=== PATIENT | male | born 1960 | race American Indian/Alaskan Native ===

== ENCOUNTER 2017-07-06 08:16 | Day surgery (SDC) | payer MEDICARE ==
[2017-07-06] MEDS ORDERED: NACL 0.9% 1000 ML 1,000 ML IV SCH (09:00)
--- NOTE | 2017-07-06 09:16 | Anesthesia Day of Surgery ---
Anesthesia Day of Surgery - Day of Surgery Patient Examined: Yes Patient H&P Reviewed: Yes Patient is NPO: Yes Beta Blockers: No Cardiac Clearance: No Pulmonary Clearance: No
[2017-07-06] MEDS ORDERED: DIPRIVAN 10 MG/ML IV ONE ×2 (09:18→09:19)
--- NOTE | 2017-07-06 09:18 | Anesthesia Consultation ---
Anesthesia Consult and Med Hx - Airway Anesthetic Teeth Evaluation: Good ROM Head & Neck: Adequate Mental/Hyoid Distance: Adequate Mallampati Class: Class III Intubation Access Assessment: Probably Good - Pulmonary Exam CTA: Yes - Cardiac Exam Cardiac Exam: No Murmur - Pre-Operative Health Status ASA Pre-Surgery Classification: ASA3 Proposed Anesthetic Plan: MAC - Pulmonary Hx Smoking: Yes (PAST SMOKER-STOPPED X 1 YR-1/2PPD X 25YRS) Hx Asthma: No COPD: No Hx Pneumonia: No Hx Sleep Apnea: Yes - Cardiovascular System Hx Hypertension: Yes Hx Coronary Artery Disease: No Hx Heart Attack/AMI: No Hx Angina: No (>4METS) - Central Nervous System Hx Seizures: No CVA: No Hx Back Pain: Yes (CHRONIC BACK AND NECK PAIN) Hx Psychiatric Problems: No - Gastrointestinal Hx Gastroesophageal Reflux Disease: No - Endocrine Hx Renal Disease: Yes Hx Liver Disease: Yes Hx Insulin Dependent Diabetes: Yes Hx Thyroid Disease: No - Hematic Hx Anemia: Yes Hx Sickle Cell Disease: No - Other Systems Hx Cancer: No Hx Obesity: Yes (not M.O.)
[2017-07-06] MEDS ORDERED: XYLOCAINE 2% INFILTRATI ONE (09:19)
[2017-07-06] MEDS ORDERED: WATER FOR IRRIG STERILE ONE (09:20)
--- NOTE | 2017-07-06 09:54 | Short Stay Summary ---
Short Stay Documentation Date of service: 07/06/17 Narrative H&P: The patient presents for colonoscopy to evaluate iron deficiency anemia. - History Past Medical History: diabetes, hypertension, other (chronic pain) Past Surgical History: No surgical history Social history: no smoking, no alcohol abuse - Allergies and Medications Current Medications: Allergies meperidine HCl [From Demerol] Allergy (Verified 08/21/14 11:11) Shortness of Breath Home Medications Medication Instructions Recorded Confirmed Last Taken Type Atorvastatin 20 mg PO DAILY 08/21/14 09/28/14 09/27/14 History Methadone HCl 10 mg PO 6XD 08/21/14 09/28/14 09/27/14 History NovoLIN 70-30 100 Unit/ml Vial 40 units SC AMHY 08/21/14 09/28/14 09/27/14 History Hctz 12.5 mg PO DAILY 09/25/14 09/28/14 09/27/14 History Lotrel 10-20 mg 1 tab PO DAILY 09/25/14 09/28/14 09/27/14 History oxyCODONE 15 mg PO 4XD 09/25/14 09/28/14 09/27/14 History Amlodipine Besylate/Benazepril 07/01/17 Unknown History [Amlodipine-Benazepril 10-20 mg] Active Medications Sodium Chloride (Nacl 0.9% 1000 Ml) 1,000 mls @ 50 mls/hr IV DIRECT HOLLEY - Physical exam General appearance: no acute distress, well-nourished Integumentary: no rash, no growths, no abnormal pigmentation HEENT: Atraumatic, PERRLA, EOMI, Mucous membr. moist/pink Lungs: Clear to auscultation, Normal air movement Breasts: deferred Heart: Regular rate, Normal S1, Normal S2, No murmurs Gastrointestinal: normoactive bowel sounds, no tenderness, no distended, no masses, no hepatomegaly, no splenomegaly Male Genitourinary: deferred Rectal Exam: normal exam-external/orifice, normal rectal tone, no mass Extremities: no ischemia, pulses intact, pulses symmetrical, No edema, normal temperature, normal color, Full ROM Neurological: Normal gait, Normal speech, Strength at 5/5 X4 ext, Normal tone, Sensation intact, Cranial nerves 3-12 NL - Brief post op/procedure progress note Date of procedure: 07/06/17 Findings: see dictated report. Estimated blood loss: none Pathology: none Condition: stable - Disposition Condition at discharge: Good Disposition: DC-01 TO HOME OR SELFCARE - Discharge Diagnoses (1) Iron deficiency anemia due to chronic blood loss Status: Acute Short Stay Discharge Plan Activity: other (no driving for 24 hours) Weight Bearing Status: Weight Bear as Tolerated Diet: diabetic Follow up with: MARIE BARTHOLOMEW MD [Primary Care Provider] - 7 Days
--- NOTE | 2017-07-06 09:58 | Operative Report ---
Operative Report Operative Report: Date of procedure: 07/06/2017 Preprocedure diagnosis: Iron deficiency anemia Post procedure diagnosis: Few left colon diverticula, otherwise normal Procedure: Colonoscopy to the cecum Endoscopist: Dr. Torres Anesthesia: Monitored anesthesia care per anesthesia department Estimated blood loss: 0 Medications: Monitored anesthesia care. See separate report by anesthesia for details. After careful discussion of the nature and purpose of the procedure as well as details of the technique risks benefits and alternatives the patient gave consent. Please see recent history and physical from the office. The patient was placed in the left lateral decubitus position and medicated per anesthesia. A rectal exam was performed sphincter tone was normal there were no masses palpable. The [employer] 570 scope was passed transanally and advanced under continuous direct vision without difficulty to the cecum. The colon was well prepared. The cecum was normal. The ascending colon was normal and on forward and retroflexed views. The transverse colon and descending colon were normal. There were a few scattered diverticula in the sigmoid colon. The rectum was normal on forward and retroflexed views. The procedure was well-tolerated overall and the patient was observed in recovery. Conclusions: Few sigmoid diverticula, otherwise normal colonoscopy to the cecum. Plan: Continue iron therapy in light of previous negative workup. Office follow -up in 3 months. Consider repeating upper endoscopy or hematology referral if the patient's blood count is not clearly stable. Signed electronically: Roel Torres M.D.
[2017-07-06 10:37] VITALS: BP 126/59
--- NOTE | 2017-07-06 14:16 | Post Anesthesia Evaluation ---
- Post Anesthesia Evaluation Patient Participated: Yes Airway Patent: Yes Stable Respiratory Function: Yes Nausea/Vomiting: No Temp > 96.8F: Yes Pain Manageable: Yes Adequeate Hydration: Yes Anesthesia Complications: No
== END 2017-07-06 08:17 | disposition home or self-care (01) ==
LOC: GIO 08:16
PROVIDERS: ATTEND Internal Medicine Gastroenterology
DX: D50.9 Iron deficiency anemia, unspecified (principal); K57.30 Diverticulosis of large intestine without perforation or abscess without bleeding; G47.30 Sleep apnea, unspecified; I10 Essential (primary) hypertension; E11.9 Type 2 diabetes mellitus without complications; E66.9 Obesity, unspecified; Z87.891 Personal history of nicotine dependence; Z79.899 Other long term (current) drug therapy
CPT/HCPCS: 45378; 82962; J2704; J7030

== ENCOUNTER 2017-07-21 09:14 | Day surgery (SDC) | payer MEDICARE ==
--- NOTE | 2017-07-21 10:26 | Anesthesia Consultation ---
Anesthesia Consult and Med Hx Date of service: 07/21/17 - Airway Anesthetic Teeth Evaluation: Good ROM Head & Neck: Adequate Mental/Hyoid Distance: Adequate Mallampati Class: Class II Intubation Access Assessment: Probably Good - Pulmonary Exam CTA: Yes - Cardiac Exam Cardiac Exam: RRR - Pre-Operative Health Status ASA Pre-Surgery Classification: ASA3 Proposed Anesthetic Plan: MAC - Pulmonary Hx Smoking: Yes (former ) Hx Sleep Apnea: Yes (cpap) - Cardiovascular System Hx Hypertension: Yes - Central Nervous System Hx Back Pain: Yes - Endocrine Hx Non-Insulin Dependent Diabetes: Yes - Hematic Hx Anemia: Yes
--- NOTE | 2017-07-21 10:27 | Anesthesia Day of Surgery ---
Anesthesia Day of Surgery - Day of Surgery Patient Examined: Yes Patient H&P Reviewed: Yes Patient is NPO: Yes
[2017-07-21] MEDS ORDERED: D50W (25GM) Syringe IV ONE (10:35)
[2017-07-21] MEDS ORDERED: WATER FOR IRRIG STERILE IR ONE (10:54)
[2017-07-21] MEDS ORDERED: DIPRIVAN 10 MG/ML IV ONE (10:56)
[2017-07-21] MEDS ORDERED: NACL 0.9% 1000 ML 1,000 ML IV SCH (11:00)
--- NOTE | 2017-07-21 11:22 | Short Stay Summary ---
Short Stay Documentation Date of service: 07/21/17 Narrative H&P: The patient presents for EGD to evaluate unexplained iron deficiency anemia. Recent colonoscopy revealed diverticulosis. - History Past Medical History: diabetes, hypertension Past Surgical History: No surgical history Social history: no significant social history, , lives with family, no smoking, no alcohol abuse, no prescription drug abuse - Allergies and Medications Current Medications: Allergies meperidine HCl [From Demerol] Allergy (Verified 08/21/14 11:11) Shortness of Breath Home Medications Medication Instructions Recorded Confirmed Last Taken Type Atorvastatin 20 mg PO DAILY 08/21/14 09/28/14 09/27/14 History Methadone HCl 10 mg PO 6XD 08/21/14 09/28/14 09/27/14 History NovoLIN 70-30 100 Unit/ml Vial 40 units SC AMHY 08/21/14 09/28/14 09/27/14 History Hctz 12.5 mg PO DAILY 09/25/14 09/28/14 09/27/14 History Lotrel 10-20 mg 1 tab PO DAILY 09/25/14 09/28/14 09/27/14 History oxyCODONE 15 mg PO 4XD 09/25/14 09/28/14 09/27/14 History Amlodipine Besylate/Benazepril 07/01/17 Unknown History [Amlodipine-Benazepril 10-20 mg] Active Medications Sodium Chloride (Nacl 0.9% 1000 Ml) 1,000 mls @ 50 mls/hr IV DIRECT HOLLEY Last Admin: 07/21/17 10:45 Dose: 50 mls/hr - Physical exam General appearance: no acute distress, well-nourished Integumentary: no rash, no growths, no abnormal pigmentation HEENT: Atraumatic, PERRLA, EOMI, Mucous membr. moist/pink Lungs: Clear to auscultation, Normal air movement Breasts: deferred Heart: Regular rate, Normal S1, Normal S2, No murmurs Gastrointestinal: normoactive bowel sounds, no tenderness, no distended, no masses, no organomegaly Male Genitourinary: deferred Rectal Exam: deferred Extremities: no ischemia, pulses intact, pulses symmetrical, No edema, normal temperature, normal color, Full ROM Neurological: Normal gait, Normal speech, Strength at 5/5 X4 ext, Normal tone, Sensation intact, Cranial nerves 3-12 NL - Brief post op/procedure progress note Date of procedure: 07/21/17 Findings: report dictated. Estimated blood loss: none Pathology: list (antral biopsies for h.pylori) Specimen disposition: to lab Condition: stable - Disposition Condition at discharge: Good Disposition: DC-01 TO HOME OR SELFCARE - Discharge Diagnoses (1) Iron deficiency anemia due to chronic blood loss Status: Acute Short Stay Discharge Plan Activity: other (no driving for 24 hours) Weight Bearing Status: Weight Bear as Tolerated Diet: regular Additional Instructions: Post Sedation D/C Instructions When you return home you may resume your regular diet unless otherwise directed. -Go directly home from the hospital and rest quietly. You may resume normal activities tomorrow. -Do NOT drive, return to work, operate any machinery or make any important personal or business decisions today. -Do NOT drink any alcohol or take nerve or sleeping drugs. They add to the effects of the medicine still present in your body. Follow up with: MARIE BARTHOLOMEW MD [Primary Care Provider] - 7 Days
--- NOTE | 2017-07-21 11:24 | Operative Report ---
Operative Report Operative Report: Date of procedure: 07/21/2017 Procedure: Esophagogastroduodenoscopy with antral biopsies for H. pylori Preprocedure diagnosis: Unexplained iron deficiency anemia Post procedure diagnosis: Minimal prepyloric and antral gastritis Endoscopist: Dr. Torres Anesthesia: Monitored anesthesia care per anesthesia department Medications: Propofol per anesthesia Estimated blood loss: 0 After careful discussion of the nature and purpose of the procedure as well as details the technique risks benefits and alternatives consent was obtained. The patient was placed in the left lateral decubitus position and medicated per anesthesia. The tip of the [employer] 570 video scope was passed per orum under direct vision into the esophagus and advanced into the stomach and descending duodenum. The descending duodenum the duodenal bulb and pylorus were symmetrical and normal. The scope was withdrawn into the stomach and the stomach then gently insufflated with air. The antrum revealed a few punctate erosions in the mid antrum and prepyloric region. 3 biopsies were taken in the prepyloric area for H. pylori testing. The stomach was further insufflated and the scope was then retroflexed and partially withdrawn. The cardia, fundus, and body of the stomach were within normal limits and easily distensible.The scope was then withdrawn in the forward position. The esophagogastric junction was at 40 cm. The esophageal body was normal throughout. The procedure was was well tolerated and the patient was observed in recovery. Impressions: Mild prepyloric antral gastritis. No findings overall to explain iron deficiency status. Plan: Iron therapy. Office follow-up in 6 weeks. Continued iron therapy. Consider repeating pill camera study depending upon his labs. Electronically signed: Roel Torres MD
[2017-07-21 11:33] VITALS: BP 105/68
== END 2017-07-21 09:15 | disposition home or self-care (01) ==
LOC: GIO 09:14
PROVIDERS: ATTEND Internal Medicine Gastroenterology
DX: D50.0 Iron deficiency anemia secondary to blood loss (chronic) (principal); K29.50 Unspecified chronic gastritis without bleeding; G47.33 Obstructive sleep apnea (adult) (pediatric); E11.9 Type 2 diabetes mellitus without complications; I10 Essential (primary) hypertension; Z79.899 Other long term (current) drug therapy; Z99.89 Dependence on other enabling machines and devices; Z88.6 Allergy status to analgesic agent; Z87.891 Personal history of nicotine dependence
CPT/HCPCS: 43239; 82962; 88305; 88342; J2704

== ENCOUNTER 2020-12-13 14:37 | Emergency (ER) | payer MEDICARE | END 2020-12-13 14:45 | disposition left against medical advice (07) | LOC: ED 14:37 | DX: R10.9 Unspecified abdominal pain (principal); Z53.21 Procedure and treatment not carried out due to patient leaving prior to being seen by health care provider ==